=== PATIENT | female | born 1995 | race Caucasian/White ===

== ENCOUNTER 2023-12-18 15:02 | Emergency (ER) | payer OTHER ==
[~2023-12-18] VITALS: Ht 162.6 cm; Wt 108.0 kg
[2023-12-18 15:06] VITALS: BP 147/102; PULSE 102; RESP 16; TEMP 98.1; O2SAT 98
[2023-12-18 15:28] VITALS: TEMP 97.9
[2023-12-18 15:52] VITALS: BP 114/68; PULSE 92; RESP 16; O2SAT 97
== END 2023-12-18 15:52 | disposition home or self-care (01) ==
LOC: MED 15:02
DX: K11.8 Other diseases of salivary glands (principal); R20.2 Paresthesia of skin; J45.909 Unspecified asthma, uncomplicated; Z88.0 Allergy status to penicillin
CPT/HCPCS: 82948; 99282